=== PATIENT | male | born 1970 | race American Indian/Alaskan Native ===

== ENCOUNTER 2019-03-23 11:59 | Emergency (ER) | payer BC ==
[2019-03-23 12:09] VITALS: BP 94/53
--- NOTE | 2019-03-23 12:09 | Event Note ---
ED Screening Note Date of service: 03/23/19 Time: 12:04 ED Screening Note: This is a 48 y.o. M. that presents to the ER s/p syncopal episode. Patient was riding in the car with family and remember waking up sweaty and BUE cramping. Patient family states he was out for 1-2 minutes. He woke up complaining of dizziness. This initial assessment/diagnostic orders/clinical plan/treatment(s) is/are subject to change based on patients health status, clinical progression and re- assessment by fellow clinical providers in the ED. Further treatment and workup at subsequent clinical providers discretion. Patient/guardian urged not to elope from the ED as their condition may be serious if not clinically assessed and managed. Initial orders include: CT of head, ekg, and labs Main ED for further evaluation
[2019-03-23 12:37] LABS: Basophils % (Auto) 0.8 % (0.0-1.8); Eosinophils # (Auto) 0.2 K/mm3 (0.0-0.4); Eosinophils % (Auto) 3.9 % (0.0-4.3); Hematocrit 42.6 % (35.5-45.6); Hemoglobin 14.5 gm/dl (11.8-15.2); Lymphocytes # (Auto) 2.6 K/mm3 (1.2-5.4); Lymphocytes % (Auto) 46.2 % (13.4-35.0); Mean Corpuscular HGB Conc 34 % (32-34); Mean Corpuscular Volume 96 fl (84-94); Monocytes # (Auto) 0.6 K/mm3 (0.0-0.8); Monocytes % (Auto) 10.6 % (0.0-7.3); Platelet Count 281 K/mm3 (140-440); Red Blood Count 4.45 M/mm3 (3.65-5.03); Red Cell Distribution Width 12.7 % (13.2-15.2)
[2019-03-23 12:59] LABS: Albumin 3.9 g/dL (3.9-5)
--- NOTE | 2019-03-23 13:00 | Cat Scan Report ---
CT head without contrast INDICATION : MAIN: syncopal episode, SHARP PAIN IN THE HEAD, STARTED TODAY, NO PRIORS . TECHNIQUE: Axial imaging performed from the skull apex through the skull base without the use of con trast. All CT scans at this location are performed using CT dose reduction for ALARA by means of aut omated exposure control. COMPARISON: None FINDINGS: Parenchyma: No acute intracranial hemorrhage or parenchymal abnormality. Ventricles: Ventricles are normal in size and appear symmetric. Soft tissues: Soft tissues including the orbits appear normal. Bones: No acute osseous abnormality. Sinuses: Sinuses and mastoid air cells are clear. IMPRESSION: No acute abnormality. Signer Name: Reinaldo Sharma MD Signed: 03/23/2019 12:56 PM Workstation Name: [id number]
[2019-03-23] MEDS ORDERED: NACL 0.9% 1000 ML 2,000 ML IV ONE (13:08)
--- NOTE | 2019-03-23 13:10 | Emergency Department Report ---
ED General Adult HPI - General Chief complaint: Syncope Stated complaint: PASSED OUT Time Seen by Provider: 03/23/19 12:04 Source: patient, RN notes reviewed Mode of arrival: Ambulatory Limitations: No Limitations, Other (patient does not know full details of his past medical history.) - History of Present Illness Initial comments: This is a 48-year-old gentleman. The patient is not known to this provider previously. He takes prescription medications, but does not know the names of his medications, and does not know his primary care doctor. He does not know what chronic medical conditions he has. Patient apparently has a history of partial left-sided pneumonectomy, and colonic resection. He cannot tell me why. Patient presents to the ER today with complaints of seizure versus syncope. Patient was in a car, driving from [place], feeling like his usual baseline self, when he apparently had an episode of loss of consciousness, and convul sions and sweating. This is now resolved. The patient denies all complaints at this time. He indicates this has not happened to him in the past. He currently denies neck pain, chest pain, abdominal pain. He has chronic shortness of breath which is new, worsening or different. Patient indicates chronic left-sided retro-orbital headaches, present since November, which "feel like electricity." They are not present at the moment. He has no abdominal pain, no hematemesis, no bright red blood per rectum. He does admits to recreationally consuming cannabis, and tobacco. -: Sudden Consistency: now resolved Improves with: none Worsens with: none - Related Data Allergies Allergy/AdvReac Type Severity Reaction Status Date / Time No Known Allergies Allergy Unverified 03/23/19 12:09 ED Review of Systems ROS: Stated complaint: PASSED OUT Other details as noted in HPI Constitutional: denies: fever Eyes: denies: eye discharge ENT: denies: epistaxis Respiratory: shortness of breath. denies: cough Cardiovascular: syncope. denies: chest pain Gastrointestinal: denies: hematemesis, melena, hematochezia Genitourinary: denies: dysuria Musculoskeletal: denies: arthralgia Skin: denies: lesions Neurological: headache. denies: weakness, numbness, paresthesias, confusion, vertigo Hematological/Lymphatic: denies: easy bleeding ED Past Medical Hx - Past Medical History Previous Medical History?: Yes Additional medical history: Pnemonia - Surgical History Past Surgical History?: Yes Additional Surgical History: Left lung removal. Colon resection - Social History Smoking Status: Current Every Day Smoker Substance Use Type: Alcohol, Marijuana ED Physical Exam - General Limitations: No Limitations General appearance: alert, in no apparent distress - Head Head exam: Present: atraumatic, normocephalic - Eye Eye exam: Present: normal appearance, EOMI, other (visual acuity intact to finger counting, color perception, reading at a close distance). Absent: nystagmus - ENT ENT exam: Present: normal exam, normal orophraynx, mucous membranes moist, normal external ear exam - Neck Neck exam: Present: normal inspection, full ROM. Absent: tenderness, meningismus - Respiratory Respiratory exam: Present: decreased breath sounds (decreased breath sounds in the right hemithorax). Absent: respiratory distress, wheezes, rales, rhonchi, stridor - Cardiovascular Cardiovascular Exam: Present: regular rate, normal rhythm, normal heart sounds. Absent: bradycardia, tachycardia, irregular rhythm, systolic murmur, diastolic murmur, rubs, gallop - GI/Abdominal GI/Abdominal exam: Present: soft. Absent: distended, tenderness, guarding, rebound, rigid, pulsatile mass - Rectal Rectal exam: Present: deferred - Extremities Exam Extremities exam: Present: normal inspection, full ROM, other (2+ pulses noted in the bilateral upper, lower extremities. Compartments soft. No long bony tenderness. The pelvis is stable.). Absent: pedal edema, joint swelling, calf tenderness - Back Exam Back exam: Present: normal inspection, full ROM. Absent: tenderness, CVA tenderness (R), CVA tenderness (L), paraspinal tenderness, vertebral tenderness - Neurological Exam Neurological exam: Present: alert, oriented X3, other (Extraocular movements intact. Tongue midline. No facial droop. Facial sensation intact to light touch in the V1, V2, V3 distribution bilaterally. 5 and 5 strength in 4 extremities.. Sensation is intact to light touch in 4 extremities.). Absent: motor sensory deficit - Psychiatric Psychiatric exam: Present: normal affect, normal mood - Skin Skin exam: Present: warm, dry, intact, normal color. Absent: rash ED Course Vital Signs 03/23/19 12:04 Temperature 98 F Pulse Rate 65 Respiratory 18 Rate Blood Pressure 94/53 O2 Sat by Pulse 98 Oximetry - Reevaluation(s) Reevaluation #1: 03/23/19 13:50 Differential diagnosis, including but not limited to: Orthostasis, vagal event, electrolyte derangement, dehydration, structural cardiac disease, acute coronary syndrome, migraine headache, tension headache, cluster headache, cannabis side effect, pulmonary embolism Assessment and plan: 48-year-old gentleman, who reports being in his usual state of health, does not know his chronic medication history, does not know his past medical history, [place], presenting with loss of consciousness, sounds like seizure versus syncope. The patient is currently afebrile, with a GCS of 15, clinically sober, not tachycardic, not hypoxic, with blood pressure 94/53. We have recommended additional screening laboratory studies and IV fluids. Patient is declining IV fluids. The patient is currently alert and oriented 3, clinically sober, and exhibits decision-making capacity. The risks of incomplete evaluation and treatment in the emergency room discussed with the patient, and he was informed of the potential for , disability, paralysis, permanent loss of quality of life. The patient verbalizes understanding. The patient's conversation is witnessed by nurse Gregg Yeboah. Patient is amenable to additional diagnostic workup at this time. Reevaluation #2: 03/23/19 14:15 Patient would like to leave AGAINST MEDICAL ADVICE. He does not want to wait for his laboratory studies to result. He continues to remain clinically sober and exhibits decision-making capacity. He is free from distracting injury. Again, reiterated risks of leaving, including , disability, paralysis, loss of quality of life. This conversation is witnessed by the patient's , and by nurse Gregg Yeboah. Patient further counseled to not drive or operate motor vehicles for the next 6 months, or until cleared by her primary care doctor or engineer chief. ED Medical Decision Making - Lab Data Result diagrams: 03/23/19 12:24 03/23/19 12:24 Vital Signs 03/23/19 12:04 Temperature 98 F Pulse Rate 65 Respiratory 18 Rate Blood Pressure 94/53 O2 Sat by Pulse 98 Oximetry Lab Results 03/23/19 03/23/19 Range/Units 12:24 12:24 WBC 5.6 (4.5-11.0) K/mm3 RBC 4.45 (3.65-5.03) M/mm3 Hgb 14.5 (11.8-15.2) gm/dl Hct 42.6 (35.5-45.6) % MCV 96 H (84-94) fl MCH 33 H (28-32) pg MCHC 34 (32-34) % RDW 12.7 L (13.2-15.2) % Plt Count 281 (140-440) K/mm3 Lymph % (Auto) 46.2 H (13.4-35.0) % [place] % (Auto) 10.6 H (0.0-7.3) % Eos % (Auto) 3.9 (0.0-4.3) % Baso % (Auto) 0.8 (0.0-1.8) % Lymph # 2.6 (1.2-5.4) K/mm3 [place] # 0.6 (0.0-0.8) K/mm3 Eos # 0.2 (0.0-0.4) K/mm3 Baso # 0.0 (0.0-0.1) K/mm3 Seg Neutrophils % 38.5 L (40.0-70.0) % Seg Neutrophils # 2.2 (1.8-7.7) K/mm3 Sodium 138 (137-145) mmol/L Potassium 4.2 (3.6-5.0) mmol/L Chloride 102.9 (98-107) mmol/L Carbon Dioxide 26 (22-30) mmol/L Anion Gap 13 mmol/L BUN 9 (9-20) mg/dL Creatinine 1.5 (0.8-1.5) mg/dL Estimated GFR 50 ml/min BUN/Creatinine Ratio 6 % Glucose 170 H (75-100) mg/dL Calcium 9.0 (8.4-10.2) mg/dL Total Bilirubin 0.70 (0.1-1.2) mg/dL AST 13 (5-40) units/L ALT 9 (7-56) units/L Alkaline Phosphatase 73 (35-129) units/L Total Protein 6.6 (6.3-8.2) g/dL Albumin 3.9 (3.9-5) g/dL Albumin/Globulin Ratio 1.4 % - EKG Data -: EKG Interpreted by Tx EKG shows normal: sinus rhythm Rate: normal - EKG Data When compared to previous EKG there are: previous EKG unavailable 03/23/19 13:53 a sinus bradycardia, 54 bpm, normal axis, QTC within normal limits, nonspecific ST abnormalities, left ventricular hypertrophy, no endorsement of chest pain, this EKG is abnormal, there is no prior for comparison, the EKG is not consistent with ST elevation myocardial infarction. - Radiology Data Radiology results: report reviewed, image reviewed Noncontrast CT scan of the brain is negative for acute disease. Critical care attestation.: If time is entered above; I have spent that time in minutes in the direct care of this critically ill patient, excluding procedure time. ED Disposition Clinical Impression: History of syncope Disposition: LEFT AGAINST MED ADVICE Is pt being admited?: No Does the pt Need Aspirin: No Condition: Undetermined Additional Instructions: Do not drive or operate motor vehicles for the next 6 months, or until cleared by a primary care doctor or engineer chief. Discontinue consumption of cannabis, marijuana. As we discussed, you have left the hospital/emergency room AGAINST MEDICAL ADVICE. By leaving, you risked , disability, paralysis, permanent loss of quality of life. The ER is open 24 hours a day, 7 days a week. It never closes. Please return to the emergency room right away if and when you change your mind. If you decide not to return to the emergency room, please follow-up with the listed physician referrals as soon as possible. Referrals: [facility] [Provider Group] - 3-5 Days [facility] [Provider Group] - 3-5 Days
--- NOTE | 2019-03-23 13:57 | XRay Report ---
CHEST 2 VIEWS INDICATION: dyspnea. Syncopal episode today COMPARISON: Previous chest x-ray from [facility] in [facility] performed 09/25/2018 FINDINGS: Support devices: None. Heart: Within normal limits. Lungs/pleura: No acute air space or interstitial disease. No pneumothorax. Additional findings: None. IMPRESSION: 1. No acute findings. Signer Name: Reinaldo Sharma MD Signed: 03/23/2019 1:53 PM Workstation Name: [id number]
== END 2019-03-23 14:20 | disposition left against medical advice (07) ==
LOC: ED 11:59
DX: R55 Syncope and collapse (principal); R56.9 Unspecified convulsions; F17.200 Nicotine dependence, unspecified, uncomplicated; F12.90 Cannabis use, unspecified, uncomplicated; G89.29 Other chronic pain; R51 Headache; Z98.890 Other specified postprocedural states; Z90.2 Acquired absence of lung [part of]
CPT/HCPCS: 36415; 70450; 71046; 80053; 82550; 83735; 84443; 85025; 85379; 93005; 93010; 99285; G0480; 80320